=== PATIENT | female | born 1970 | race African-American/Black ===

== ENCOUNTER 2024-11-21 19:41 | Emergency (ER) | payer OTHER ==
[~2024-11-21] VITALS: Ht 172.7 cm; Wt 60.0 kg
[2024-11-21 19:58] VITALS: O2SAT 99
[2024-11-21] MEDS: SODIUM CHLORIDE 0.9% 1,000 ML IV ONE (20:43)
[2024-11-21 20:44] LABS: CHLORIDE 110 mEq/L (98-107); POTASSIUM 4.1 mEq/L (3.5-5.1); SODIUM 141 mEq/L (136-145)
[2024-11-21 20:45] LABS: BASOPHILS % 1.1 % (0.0-2.0); CARBON DIOXIDE 20 mEq/L (21-32); EOSINOPHILS % 3.1 % (0.0-5.0); HEMOGLOBIN. 10.5 g/dL (12.0-16.0); LYMPHOCYTES % 44.6 % (20.0-50.0); MEAN CORPUSCULAR HEMOGLOBIN 28.7 pg (28.0-32.0); MEAN CORPUSCULAR VOLUME 89.7 fL (81.0-99.0); MEAN PLATELET VOLUME 7.8 fl (7.4-10.4); NEUTROPHILS % 44.2 % (40.0-76.0); PLATELET 231 x1000/uL (130-400); RED BLOOD CELL COUNT 3.68 mill/uL (4.2-5.4); RED CELL DISTRIBUTION WIDTH 13.1 % (11.6-14.6); WHITE BLOOD COUNT 5.7 x1000/uL (4.5-11.0)
[2024-11-21 20:46] LABS: CALCIUM 8.5 mg/dL (8.7-10.4)
[2024-11-21] MEDS: LEVETIRACETAM 1000MG PREMIX 100 ML IV ONE (20:46)
[2024-11-21 20:50] LABS: CREATININE 0.9 mg/dL (0.6-1.0); GLUCOSE 101 mg/dL (70-105)
[2024-11-21 20:51] LABS: UREA NITROGEN BLOOD 15 mg/dL (9-23)
[2024-11-21 20:52] LABS: PROTHROMBIN TIME 10.4 sec (9.6-11.0)
[2024-11-21 21:00] LABS: ETHANOL BLOOD 361 mg/dL (<10)
[2024-11-21 22:08] LABS: CLARITY URINE CLEAR (CLEAR); COLOR URINE YELLOW (YELLOW); GLUCOSE URINE NEGATIVE (NEGATIVE); KETONES URINE NEGATIVE (NEGATIVE); LEUKOCYTE ESTERASE URINE NEGATIVE (NEGATIVE); NITRITE URINE NEGATIVE (NEGATIVE); OCCULT BLOOD URINE NEGATIVE (NEGATIVE); PH URINE 5.5 (4.5-8.0); PROTEIN URINE NEGATIVE (NEGATIVE); SPECIFIC GRAVITY URINE 1.007 (1.005-1.030); UROBILINOGEN URINE 0.2 E.U./dL (0.2-1.0)
[2024-11-21 22:17] LABS: *AMPHETAMINES SCREEN URINE NEGATIVE (NEGATIVE); *BARBITURATES SCREEN URINE NEGATIVE (NEGATIVE); *BENZODIAZEPINES SCREEN URINE NEGATIVE (NEGATIVE); *COCAINE SCREEN URINE NEGATIVE (NEGATIVE); METHADONE URINE SCREEN NEGATIVE (NEGATIVE)
[2024-11-21 22:18] LABS: CANNABINOID URINE SCREEN NEGATIVE (NEGATIVE); ECSTASY MDMA SCREEN URINE NEGATIVE (NEGATIVE); OPIATES URINE SCREEN NEGATIVE (NEGATIVE); PHENCYCLIDINE URINE SCREEN NEGATIVE (NEGATIVE)
[2024-11-21] MEDS: HALOPERIDOL LACTATE 5MG/ML VIAL IM ONE (23:33)
[2024-11-22] MEDS: DIPHENHYDRAMINE 50MG/ML VIAL IM ONE (00:58)
[2024-11-22 04:09] VITALS: TEMP 36.5
[2024-11-22 07:17] VITALS: BP 147/95; PULSE 93; RESP 14; O2SAT 100
== END 2024-11-22 07:24 | disposition admitted as inpatient to this hospital (09) ==
LOC: ER 19:41
DX: S01.511A Laceration without foreign body of lip, initial encounter (principal); G93.40 Encephalopathy, unspecified; R56.9 Unspecified convulsions; Z79.899 Other long term (current) drug therapy; X58.XXXA Exposure to other specified factors, initial encounter; Y93.89 Activity, other specified; Y92.89 Other specified places as the place of occurrence of the external cause; Y99.8 Other external cause status
CPT/HCPCS: 80305; 80048; 81003; 80320; 85025; 85610; 36415; 73110; 73130; 93005; 96365; 96372 ×2; 99285; 70450; 72125; J1953; J1630; J7030; Z7610 ×3; J1200; G0480